=== PATIENT | male | born 1985 | race Caucasian/White ===

== ENCOUNTER 2021-11-22 01:27 | Observation (INO) | payer BC ==
--- NOTE | 2021-11-22 03:06 | ED ---
Chest Pain HPI - General Chief Complaint: Chest Pain Stated Complaint: Chest pain, high BP Time Seen by Provider: 11/22/21 02:39 Source: patient Mode of arrival: ambulatory Limitations: no limitations - Related Data Allergies Allergy/AdvReac Type Severity Reaction Status Date / Time No Known Allergies Allergy Verified 11/22/21 01:36 Review of Systems ROS Statement: Those systems with pertinent positive or pertinent negative responses have been documented in the HPI. ROS Other: All systems not noted in ROS Statement are negative. EKG Findings - EKG Comments: EKG Findings:: EKG A. fib with RVR 149 QRS 90 QTC 354 Past Medical History Past Medical History: Hypertension History of Any Multi-Drug Resistant Organisms: None Reported Past Surgical History: No Surgical Hx Reported Past Psychological History: No Psychological Hx Reported Smoking Status: Never smoker Past Alcohol Use History: Rare Past Drug Use History: None Reported General Exam Limitations: no limitations Course Vital Signs 11/22/21 11/22/21 01:34 03:00 Temperature 98.7 F Pulse Rate 77 147 H Respiratory 18 22 Rate Blood Pressure 152/100 128/106 O2 Sat by Pulse 98 98 Oximetry Disposition Clinical Impression: New onset atrial fibrillation, Atrial fibrillation with RVR Disposition: ADMITTED IP TO THIS HOSP Condition: Good Is patient prescribed a controlled substance at d/c from ED?: No Referrals: Roxy Charles MD [Primary Care Provider] - 1-2 days
[2021-11-22 03:25] LABS: Basophils % (A) 0 %; Eosinophils # (A) 0.2 k/uL (0-0.7); Eosinophils % (A) 2 %; HCT 41.9 % (39.0-53.0); HGB 14.4 gm/dL (13.0-17.5); Lymphocytes % (A) 21 %; MCH 30.4 pg (25.0-35.0); MCHC 34.3 g/dL (31.0-37.0); MCV 88.7 fL (80.0-100.0); Mean Platelet Volume 8.2; Monocytes # (A) 0.7 k/uL (0-1.0); Monocytes % (A) 8 %; Neutrophils # (A) 6.4 k/uL (1.3-7.7); Neutrophils % (A) 68 %; Platelet Count 293 k/uL (150-450); RBC 4.72 m/uL (4.30-5.90); RDW 12.9 % (11.5-15.5); WBC 9.5 k/uL (3.8-10.6)
[2021-11-22 03:35] LABS: Creatine Kinase 120 U/L (55-170)
[2021-11-22 03:37] LABS: ALT 15 U/L (4-49); AST 25 U/L (17-59); African American GFR (CKD) >90 (>60 ml/min/1.73 sqM); Albumin 4.7 g/dL (3.5-5.0); Alkaline Phosphatase 101 U/L (38-126); Anion Gap 7 mmol/L; Blood Urea Nitrogen 17 mg/dL (9-20); Calcium 9.5 mg/dL (8.4-10.2); Carbon Dioxide 27 mmol/L (22-30); Chloride 106 mmol/L (98-107); Glucose 98 mg/dL (74-99); Non-African American GFR(CKD) >90 (>60 ml/min/1.73 sqM); Sodium 140 mmol/L (137-145); Total Bilirubin 0.3 mg/dL (0.2-1.3); Total Protein 7.4 g/dL (6.3-8.2)
[2021-11-22] MEDS ORDERED: ONDANSETRON 4 MG/2 ML VIAL IVP PRN (03:44)
[2021-11-22] MEDS ORDERED: MORPHINE SULFATE 4 MG/ML SYRINGE IV PRN (03:44)
[2021-11-22] MEDS ORDERED: DILTIAZEM DRIP BOLUS FROM BAG 1 MG SOLN IV ONE (03:44)
[2021-11-22] MEDS ORDERED: NALOXONE 0.4 MG/ML 1 ML VIAL IV PRN (03:44)
[2021-11-22] MEDS ORDERED: METOPROLOL TARTRATE 5 MG/5 ML VIAL IVP STA (03:44)
[2021-11-22] MEDS ORDERED: DILTIAZEM 125 MG in SODIUM CHLORIDE 0.9% 100 ML IV SCH (03:45)
[2021-11-22 03:47] LABS: Creatine Kinase MB 0.8 ng/mL (0.0-2.4); Troponin I <0.012 ng/mL (0.000-0.034)
[2021-11-22] MEDS: SODIUM CHLORIDE 0.9% 1,000 ML IV SCH ×2 (03:54→21:37)
[2021-11-22] MEDS: APIXABAN 5 MG TAB PO SCH ×2 (05:18→19:45)
[2021-11-22] MEDS ORDERED: FLECAINIDE 50 MG TAB PO STA (08:59)
--- NOTE | 2021-11-22 09:23 | P.HPIM ---
History of Present Illness H&P Date: 11/22/21 Yair Castaneda, is a 35-year-old male who presented to [facility] emergency room with a chief complaint of chest pain, patient describes a discomfort in his chest that started around 11 PM last night He was evaluated in the emergency room vital examination on presentation revealed a temperature of 98.7 pulse 147 respiration 18 blood pressure 152/100 pulse ox 98% on room air Laboratory data revealed white blood count 9.5 hemoglobin 14.4 platelet count 293 sodium 140 potassium 4.0 chloride 106 CO2 27 BUN 17 creatinine 0.69 troponin level less than 0.012 patient was started on IV Cardizem drip Testing in the emergency room revealed EKG done in the emergency room revealed atrial fibrillation with rapid ventricular response heart rate of 149 Patient was admitted to medical floor for further evaluation and treatment, cardiology consultation was requested. Past medical history is significant for hypertension he takes a combination of amlodipine/valsartan 10/320 one tablet daily otherwise he denies any significant past medical history, he denies taking any other medications at home. His past medical history is also significant for COVID-19 infection twice, first time in 2019 at that time he was admitted for 4 days, and about 1 months ago when he had mild upper respiratory disease. 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 On review of systems patient is alert and oriented 3 in no apparent distress there is no fever or chills no headache or dizziness no chest pain no shortness of breath no cough no nausea or vomiting no abdominal pain no diarrhea no blood in the stools no burning with urination no frequency or urgency and no hematuria. There is no weakness or numbness in any of the extremities there is no change in vision speech or gait. Past Medical History Past Medical History: Hypertension History of Any Multi-Drug Resistant Organisms: None Reported Past Surgical History: No Surgical Hx Reported Additional Past Surgical History / Comment(s): wisdom teeth Past Anesthesia/Blood Transfusion Reactions: No Reported Reaction Past Psychological History: No Psychological Hx Reported Smoking Status: Never smoker Past Alcohol Use History: Rare Past Drug Use History: None Reported Medications and Allergies Allergies Allergy/AdvReac Type Severity Reaction Status Date / Time No Known Allergies Allergy Verified 11/22/21 01:36 Physical Exam Vitals: Vital Signs Temp Pulse Pulse Resp BP BP Pulse Ox 07/16/22 07:53 98.1 F 109 H 16 118/76 98 11/22/21 05:13 18 11/22/21 04:28 99.4 F 66 18 127/85 97 11/22/21 04:11 93 20 97 11/22/21 04:00 107 H 20 115/87 96 11/22/21 03:00 147 H 22 128/106 98 11/22/21 01:34 98.7 F 77 18 152/100 98 Intake and Output 11/21/21 11/22/21 11/22/21 22:59 06:59 14:59 Other: Voiding Method Toilet # Voids 1 Weight 108.862 kg In general patient is alert and oriented x 3 in no distress HEENT head normocephalic and atraumatic Neck is supple no JVD no goiter no lymphadenopathy no carotid bruit Chest examination is clear to auscultation no crackles no wheezing Cardiac exam reveals irregular heart sounds S1 and S2 no gallops no murmurs Abdomen is soft nontender no organomegaly with normal bowel sounds Extremity exam reveals no edema no cyanosis or clubbing Neurological examination reveals no gross focal deficits Results CBC & Chem 7: 11/22/21 03:03 11/22/21 03:03 Thrombosis Risk Factor Assmnt - Choose All That Apply Any of the Below Risk Factors Present?: No Assessment and Plan Plan: Episode of chest pain New onset atrial fibrillation with rapid ventricular response Underlying history of hypertension At this time patient is admitted to telemetry floor He is maintained on IV Cardizem drip Cardiology consultation was requested Will follow closely
--- NOTE | 2021-11-22 12:58 | P.CRDCN ---
History of Present Illness Consult date: 11/22/21 Consult reason: atrial fibrillation Chief complaint: New-onset A. fib History of present illness: This is Joe Andrew NP, I'm dictating on behalf of Dr. Levin's H&P and A&P The patient was interviewed and examined. HPI: The patient is a pleasant 35-year-old male who initially presented to the hospital with complaints of weakness and fatigue with sudden onset at home. Patient states that he had been working at home, when he suddenly felt weak and tired, he states that the feeling went away, but also states that he's been having similar feelings to this on and OFF FOR THE LAST MONTH OR 2. HE STATES LAST NIGHT HE CHECKED HIS BLOOD PRESSURE AND FOUND TO BE SIGNIFICANTLY ELEVATED, AND WHEN HE CHECKED HIS SMART WATCH IT SAID HE WAS IN A. FIB. PATIENT PRESENTED TO THE HOSPITAL AND ON EKG WAS FOUND TO BE IN ATRIAL FIBRILLATION WITH RAPID VENTRICULAR RESPONSE. HE WAS SUBSEQUENTLY ADMITTED ON A CARDIZEM DRIP FOR RATE CONTROL. He has a past medical history that is significant for hypertension. He is usually on amlodipine-valsartan 10-320 mg daily. He reports today that he feels much better. His been on IV Cardizem since admission, and currently remains in A. fib with RVR. ROS: [No fever, chills, or rigors] [no cough, phlegm, or expectoration] [no nausea, vomiting, or diarrhea] [no hematuria, dysuria] [no musculoskelatal complaints] [no strokes or seizures] [no skin lesions] EXAMINATION: GENERAL: Well-appearing, well-nourished and in no acute distress. NECK: Supple without JVD or thyromegaly. LUNGS: Breath sounds clear to auscultation bilaterally. Respiration equal and unlabored. No wheezes, rales or rhonchi. HEART: Irregular rate and rhythm without murmurs, rubs or gallops. S1 and S2 heard. EXTREMITIES: Normal range of motion, no edema. No clubbing or cyanosis. Peripheral pulses intact and strong. REVIEW OF LABS, ECG & MEDICAL DATA: LABS: White count 9.5, hemoglobin 14.4, platelet 293, sodium 140, potassium 4.0, B1 17, creatinine 0.69, serial troponins negative, TSH 1.54 EKG: Atrial fibrillation with rapid ventricular response VITALS: Temp 98.2, pulse 78, respirations 16, blood pressure 122/83, O2 saturation 100% on room air IMPRESSION: 1. Atrial fibrillation with rapid ventricular response 2. Hypertension PLAN: Discontinue IV Cardizem Give flecainide 100 mg once, evaluate if patient converts. If patient does not convert, continue oral flecainide at 100 mg twice a day. If patient does not convert will consider oral Cardizem Further recommendations based on patient's clinical course Thank you for the consult and allowing us to participate in the care of this patient. Past Medical History Past Medical History: Hypertension History of Any Multi-Drug Resistant Organisms: None Reported Past Surgical History: No Surgical Hx Reported Additional Past Surgical History / Comment(s): wisdom teeth Past Anesthesia/Blood Transfusion Reactions: No Reported Reaction Past Psychological History: No Psychological Hx Reported Smoking Status: Never smoker Past Alcohol Use History: Rare Past Drug Use History: None Reported Medications and Allergies Home Medications Medication Instructions Recorded Confirmed Type Amlodipine Besylate/Valsartan 1 tab PO DAILY 11/22/21 11/22/21 History [Amlodipine-Valsartan 10-320 mg] Multivitamins, Thera [Multivitamin 1 tab PO DAILY 11/22/21 11/22/21 History (formulary)] Allergies Allergy/AdvReac Type Severity Reaction Status Date / Time No Known Allergies Allergy Verified 11/22/21 11:16 Physical Exam Vitals: Vital Signs Temp Pulse Pulse Resp BP BP Pulse Ox 11/22/21 12:00 98.2 F 78 16 122/83 100 11/22/21 07:53 98.1 F 109 H 16 118/76 98 11/22/21 05:13 18 11/22/21 04:28 99.4 F 66 18 127/85 97 11/22/21 04:11 93 20 97 11/22/21 04:00 107 H 20 115/87 96 11/22/21 03:00 147 H 22 128/106 98 11/22/21 01:34 98.7 F 77 18 152/100 98 Intake and Output 11/21/21 11/22/21 11/22/21 22:59 06:59 14:59 Intake Total 120 Balance 120 Intake: Oral 120 Other: Voiding Method Toilet Toilet # Voids 1 Weight 108.862 kg Results 11/22/21 03:03 11/22/21 03:03 Cardiac Enzymes 11/22/21 11/22/21 11/22/21 Range/Units 03:03 03:03 07:20 AST 25 (17-59) U/L CK-MB (CK-2) 0.8 (0.0-2.4) ng/mL Troponin I <0.012 <0.012 (0.000-0.034) ng/mL 11/22/21 Range/Units 09:53 AST (17-59) U/L CK-MB (CK-2) (0.0-2.4) ng/mL Troponin I <0.012 (0.000-0.034) ng/mL CBC 11/22/21 Range/Units 03:03 WBC 9.5 (3.8-10.6) k/uL RBC 4.72 (4.30-5.90) m/uL Hgb 14.4 (13.0-17.5) gm/dL Hct 41.9 (39.0-53.0) % Plt Count 293 (150-450) k/uL Comprehensive Metabolic Panel 11/22/21 Range/Units 03:03 Sodium 140 (137-145) mmol/L Potassium 4.0 (3.5-5.1) mmol/L Chloride 106 (98-107) mmol/L Carbon Dioxide 27 (22-30) mmol/L BUN 17 (9-20) mg/dL Creatinine 0.69 (0.66-1.25) mg/dL Glucose 98 (74-99) mg/dL Calcium 9.5 (8.4-10.2) mg/dL AST 25 (17-59) U/L ALT 15 (4-49) U/L Alkaline Phosphatase 101 (38-126) U/L Total Protein 7.4 (6.3-8.2) g/dL Albumin 4.7 (3.5-5.0) g/dL Current Medications Generic Name Dose Route Start Last Admin Trade Name Freq PRN Reason Stop Dose Admin Apixaban 5 mg 11/22/21 09:00 11/22/21 05:18 Apixaban 5 Mg Tab PO 5 mg BID DEBBI Administration Protocol Sodium Chloride 1,000 mls @ 130 mls/hr 11/22/21 03:45 11/22/21 03:54 Saline 0.9% IV 130 mls/hr .Q7H42M DEBBI Administration Diltiazem HCl 125 mg/ Sodium 125 mls @ 5 mls/hr 11/22/21 03:45 11/22/21 04:03 Chloride IV 5 mg/hr .Q24H DEBBI 5 mls/hr Administration 5 MG/HR Morphine Sulfate 4 mg 11/22/21 03:44 Morphine Sulfate 4 Mg/Ml Syringe IV Q4HR PRN Severe Pain Naloxone HCl 0.2 mg 11/22/21 03:44 Naloxone 0.4 Mg/Ml 1 Ml Vial IV Q2M PRN Opioid Reversal Ondansetron HCl 4 mg 11/22/21 03:44 Ondansetron 4 Mg/2 Ml Vial IVP Q8HR PRN Nausea And Vomiting Intake and Output 11/21/21 11/22/21 11/22/21 22:59 06:59 14:59 Intake Total 120 Balance 120 Intake: Oral 120 Other: Voiding Method Toilet Toilet # Voids 1 Weight 108.862 kg 11/22/21 03:03 11/22/21 03:03
[2021-11-22] MEDS ORDERED: FLECAINIDE 50 MG TAB PO ONE (18:00)
[2021-11-23] MEDS: SODIUM CHLORIDE 0.9% 1,000 ML IV SCH (04:16)
[2021-11-23] MEDS: APIXABAN 5 MG TAB PO SCH (08:29)
[2021-11-23] MEDS ORDERED: FLECAINIDE 50 MG TAB PO SCH (09:00)
--- NOTE | 2021-11-23 11:20 | CA ---
Transthoracic Echo Report Name: Yair Castaneda Age: 35 Gender: M : 1985 Exam Date: 11/22/2021 09:55 Exam Location: [place] [facility] Ht (in): 72 Wt (lb): 250 Ordering Physician: Emmanuel Ybarra MD Attending/Referring Phys: Hog Driver Katharine Bradley RDCS Procedure CPT: Indications: Chest Pain Cardiac Hx: Technical Quality: Good Contrast 1: Total Dose (mL): Contrast 2: Total Dose (mL): MEASUREMENTS (Male / Female) Normal Values 2D ECHO LV Diastolic Diameter PLAX 5.4 cm 4.2 - 5.9 / 3.9 - 5.3 cm LV Systolic Diameter PLAX 4.1 cm IVS Diastolic Thickness 1.1 cm 0.6 - 1.0 / 0.6 - 0.9 cm LVPW Diastolic Thickness 1.1 cm 0.6 - 1.0 / 0.6 - 0.9 cm LV Relative Wall Thickness 0.4 RV Internal Dim ED PLAX 3.9 cm LA Systolic Diameter LX 3.4 cm 3.0 - 4.0 / 2.7 - 3.8 cm LA Volume 49.4 cm??? 18 - 58 / 22 - 52 cm??? M-MODE Aortic Root Diameter MM 3.3 cm LA Systolic Diameter MM 3.9 cm LA Ao Ratio MM 1.2 MV E Point Septal Separation 0.5 cm AV Cusp Separation MM 2.5 cm DOPPLER MV E' Velocity 3.8 cm/s FINDINGS Left Ventricle Low Normal left ventricular size, wall thickness, systolic function with no obvious regional wall motion abnormalities. Right Ventricle The right ventricle is normal in size and function. Right Atrium The right atrium is normal in size. Left Atrium The left atrium is normal in size. Mitral Valve Structurally normal mitral valve without significant stenosis or prolapse. There is mild mitral regurgitation. Aortic Valve Structurally normal aortic valve without significant sclerosis or stenosis. There is no aortic regurgitation. Tricuspid Valve Structurally normal tricuspid valve without significant stenosis. Pulmonary artery systolic pressure is normal. Pulmonic Valve Structurally normal pulmonic valve without significant stenosis. There is no pulmonic regurgitation. Pericardium Normal pericardium without effusion. Aorta Normal aortic root dimension. CONCLUSIONS Low normal left ventricle systolic function, patient in atrial fibrillation Right ventricle appears mildly enlarged Previewed by: Dr. Perry Levin MD (Electronically Signed) Final Date: 23 November 2021 11:20
--- NOTE | 2021-11-23 11:28 | P.PN ---
Subjective Progress Note Date: 11/23/21 This is Joe Andrew NP, I'm dictating on behalf of Dr. Levin's H&P and A&P. Patient was interviewed and examined. Patient is a pleasant 35-year-old male who initially presented to hospital with A. fib with rapid ventricular response. We started the patient on flecainide yesterday, and after a single dose he converted back to normal sinus rhythm. Patient received another dose yesterday evening, and again a dose this morning, and EKG this morning after 3 doses of flecainide showed normal ST segments, with a narrow QRS. Patient reports that he is doing well today, and states that he was able to tell when he converted back to normal sinus rhythm yesterday afternoon. He has been ambulating in the room, and currently denies chest pain, shortness of breath, dizziness, and weakness. GENERAL: Well-appearing, well-nourished and in no acute distress. NECK: Supple without JVD or thyromegaly. LUNGS: Breath sounds clear to auscultation bilaterally. Respiration equal and unlabored. No wheezes, rales or rhonchi. HEART: Regular rate and rhythm without murmurs, rubs or gallops. S1 and S2 heard. EXTREMITIES: Normal range of motion, no edema. No clubbing or cyanosis. Peripheral pulses intact and strong. VITALS: Temp 98.0, pulse 67, respirations 18, blood pressure 151/85, O2 saturation 97% on room air TELEMETRY: Normal sinus rhythm LABS: No new labs drawn today IMPRESSION: 1. Atrial fibrillation with rapid ventricular response 2. Hypertension PLAN: Continue flecainide as ordered Restart patient's amlodipine/valsartan 10-320 mg daily EKG after 3 doses of flecainide demonstrates normal ST segments with a narrow QRS Continue Eliquis at 5 mg 3 times a day Patient should follow-up in the office within one to 2 weeks From a cardiology standpoint the patient can be discharged Thank you for allowing us to participate in the care of this patient. If further recommendations are needed please do not hesitate to reconsult us. Objective - Vital Signs Vital signs: Vital Signs Temp 98.0 F 11/23/21 08:00 Pulse 67 11/23/21 08:00 Resp 18 11/23/21 08:00 BP 151/85 11/23/21 08:00 Pulse Ox 97 11/23/21 08:00 FiO2 Intake & Output 11/22/21 11/23/21 11/23/21 18:59 06:59 18:59 Intake Total 780 360 Output Total 400 Balance 380 360 Intake: Oral 780 360 Output: Urine 400 Other: Voiding Method Toilet Toilet Urinal # Voids 1 1 # Bowel Movements 0 - Labs CBC & Chem 7: 11/22/21 03:03 11/22/21 03:03
[2021-11-23 12:14] VITALS: BP 133/88; PULSE 65; RESP 16; TEMP 98.5
--- NOTE | 2021-11-23 12:17 | P.DS ---
Providers Date of admission: 11/22/21 03:44 Expected date of discharge: 11/23/21 Attending physician: Emmanuel Ybarra Consults: 11/22/21 03:44 Consult Physician Routine Consulting Provider: Christianne Flores Consult Reason/Comments: NEWafibRVR Do you want consulting provider notified?: Yes Primary care physician: Roxy [facility] Hospital Course: Diagnosis on discharge: Episode of chest pain New onset atrial fibrillation with rapid ventricular response Underlying history of hypertension Hospital course: Yair Castaneda, is a 35-year-old male who presented to [facility] emergency room with a chief complaint of chest pain, patient describes a discomfort in his chest that started around 11 PM last night He was evaluated in the emergency room vital examination on presentation revealed a temperature of 98.7 pulse 147 respiration 18 blood pressure 152/100 pulse ox 98% on room air Laboratory data revealed white blood count 9.5 hemoglobin 14.4 platelet count 293 sodium 140 potassium 4.0 chloride 106 CO2 27 BUN 17 creatinine 0.69 troponin level less than 0.012 patient was started on IV Cardizem drip Testing in the emergency room revealed EKG done in the emergency room revealed atrial fibrillation with rapid ventricular response heart rate of 149 Patient was admitted to medical floor for further evaluation and treatment, cardiology consultation was requested. Past medical history is significant for hypertension he takes a combination of amlodipine/valsartan 10/320 one tablet daily otherwise he denies any significant past medical history, he denies taking any other medications at home. His past medical history is also significant for COVID-19 infection twice, first time in 2019 at that time he was admitted for 4 days, and about 1 months ago when he had mild upper respiratory disease. 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 On review of systems patient is alert and oriented 3 in no apparent distress there is no fever or chills no headache or dizziness no chest pain no shortness of breath no cough no nausea or vomiting no abdominal pain no diarrhea no blood in the stools no burning with urination no frequency or urgency and no hematuria. There is no weakness or numbness in any of the extremities there is no change in vision speech or gait. On 11/23/2021 patient was seen and examined on the telemetry floor he was alert and oriented 3 in no apparent distress he is in normal sinus rhythm with a normal rate, he denies any chest pain palpitation dizziness or shortness of breath . He was evaluated by cardiology during this admission he was started on flecainide 100 mg by mouth twice daily and Eliquis 5 mg by mouth twice daily. He was cleared by cardiology for discharge, he was given prescriptions for Flecainide and Eliquis, he was discharged home. He will follow-up with Dr. Charles within one week he will also follow with cardiology in 1-2 weeks Patient Condition at Discharge: Good Plan - Discharge Summary Discharge Rx Participant: No New Discharge Prescriptions: New Apixaban [Eliquis] 5 mg PO BID tab Flecainide [Tambocor] 100 mg PO Q12HR tab Continue Multivitamins, Thera [Multivitamin (formulary)] 1 tab PO DAILY Amlodipine Besylate/Valsartan [Amlodipine-Valsartan 10-320 mg] 1 tab PO DAILY Discharge Medication List Amlodipine Besylate/Valsartan [Amlodipine-Valsartan 10-320 mg] 1 tab PO DAILY 11/22/21 [History] Multivitamins, Thera [Multivitamin (formulary)] 1 tab PO DAILY 11/22/21 [History] Apixaban [Eliquis] 5 mg PO BID tab 11/23/21 [Rx] Flecainide [Tambocor] 100 mg PO Q12HR tab 11/23/21 [Rx] Follow up Appointment(s)/Referral(s): Roxy Charles MD [Primary Care Provider] - 1-2 days Patient Instructions/Handouts: Flecainide (By mouth), Apixaban (By mouth), A- fib (Atrial Fibrillation) (DC)
--- NOTE | 2021-11-25 10:48 | CDI ---
Documentation Clarification Form Date: 11/25/21 From: Jovita Joya Admit Date: 11/22/2021 03:44:00 AM Patient Name: Yair Castaneda Visit Number: [id number] Discharge Date: 11/23/2021 12:48:00 PM ATTENTION: The Clinical Documentation Specialists (CDI) and [facility] Coding Staff appreciate your assistance in clarifying documentation. Please respond to the clarification below the line at the bottom and electronically sign. The CDI & [facility] Coding staff will review the response and follow-up if needed. Please note: Queries are made part of the Legal Health Record. If you have any questions, please contact the author of this message via ITS. Dr. Perry Levin, Atrial Fibrillation is documented in your consult, ED Note, H&P and DS. Additional clarification regarding the type of atrial fibrillation is requested. History/Risk Factors: HTN Clinical Indicators: Last night he checked his blood pressure and found to be significantly elevated and when he checked his smart watch it said he was in A fib. EKG/telemetry: A. fib with RVR 149 QRS 90 QTC 354 Treatment: IV Cardizem, Flecainide Please clarify the type of atrial fibrillation, if known: [ ] Chronic [ ] Permanent [ ] Paroxysmal [ ] Persistent [ ] Other, please specify [ ] Unable to determine Paroxysmal atrial fibrillation MTDD
--- NOTE | 2022-01-03 13:29 | ED ---
Chest Pain HPI - General Chief Complaint: Chest Pain Stated Complaint: Chest pain, high BP Time Seen by Provider: 11/22/21 02:39 Source: patient, RN notes reviewed, old records reviewed Mode of arrival: ambulatory Limitations: no limitations - History of Present Illness Initial Comments: This is a 36-year-old male to the emergency department for evaluation. Patient has history of hypertension. Patient states she was outside doing some work and felt very lightheaded and dizziness and "feel very weak. He fell fatigue tired and noticed that his heart was racing. He did admit to some mild chest pain at that time. Symptoms have progressed, some mild diaphoresis and sweating, and symptoms persist here in the emergency department. Patient has no prior history of feeling the same. No prior history of similar symptoms. No recent travel history or sick contacts MD Complaint: chest pain, other (Elevated heart rate lightheadedness dizziness) -: hour(s) Onset: during exertion Pain Location: substernal Pain Radiation: none Severity: moderate Severity scale (1-10): 4 Quality: dull Consistency: intermittent Improves With: nothing Worsens With: exertion Context: other (Recent physical activity) Anginal Symptoms: diaphoresis, dyspnea Other Symptoms: palpitations Treatments Prior to Arrival: none - Related Data Home Medications Medication Instructions Recorded Confirmed Amlodipine Besylate/Valsartan 1 tab PO DAILY 11/22/21 11/22/21 [Amlodipine-Valsartan 10-320 mg] Multivitamins, Thera [Multivitamin 1 tab PO DAILY 11/22/21 11/22/21 (formulary)] Previous Rx's Medication Instructions Recorded Apixaban [Eliquis] 5 mg PO BID tab 11/23/21 Flecainide [Tambocor] 100 mg PO Q12HR tab 11/23/21 Allergies Allergy/AdvReac Type Severity Reaction Status Date / Time No Known Allergies Allergy Verified 11/22/21 11:16 Review of Systems ROS Statement: Those systems with pertinent positive or pertinent negative responses have been documented in the HPI. ROS Other: All systems not noted in ROS Statement are negative. EKG Findings - EKG Comments: EKG Findings:: EKG shows atrial fibrillation 149 QRS 90 QTC 354 Past Medical History Past Medical History: Hypertension History of Any Multi-Drug Resistant Organisms: None Reported Past Surgical History: No Surgical Hx Reported Additional Past Surgical History / Comment(s): wisdom teeth Past Anesthesia/Blood Transfusion Reactions: No Reported Reaction Past Psychological History: No Psychological Hx Reported Smoking Status: Never smoker Past Alcohol Use History: Rare Past Drug Use History: None Reported General Exam Limitations: no limitations General appearance: alert, in no apparent distress, anxious Head exam: Present: atraumatic, normocephalic, normal inspection Eye exam: Present: normal appearance, PERRL, EOMI. Absent: scleral icterus, conjunctival injection, periorbital swelling ENT exam: Present: normal exam, mucous membranes moist Neck exam: Present: normal inspection. Absent: tenderness, meningismus, lymphadenopathy Respiratory exam: Present: normal lung sounds bilaterally. Absent: respiratory distress, wheezes, rales, rhonchi, stridor Cardiovascular Exam: Present: tachycardia, irregular rhythm, normal heart sounds. Absent: systolic murmur, diastolic murmur, rubs, gallop, clicks GI/Abdominal exam: Present: soft, normal bowel sounds. Absent: distended, tenderness, guarding, rebound, rigid Extremities exam: Present: normal inspection, full ROM, normal capillary refill. Absent: tenderness, pedal edema, joint swelling, calf tenderness Back exam: Present: normal inspection Neurological exam: Present: alert, oriented X3, CN II-XII intact Psychiatric exam: Present: normal affect, normal mood Skin exam: Present: warm, dry, intact, normal color. Absent: rash Course Vital Signs 11/22/21 11/22/21 11/22/21 01:34 03:00 04:00 Temperature 98.7 F Pulse Rate 77 147 H 107 H Respiratory 18 22 20 Rate Blood Pressure 152/100 128/106 115/87 O2 Sat by Pulse 98 98 96 Oximetry 11/22/21 04:11 Temperature Pulse Rate 93 Respiratory 20 Rate Blood Pressure O2 Sat by Pulse 97 Oximetry - Reevaluation(s) Reevaluation #1: Medical record is reviewed Patient informed results and questions answered Patient symptoms improved here in the emergency department Chest Pain MDM - MDM 36 male to the emergency department for evaluation initially presented for evaluation of chest pain patient is found to be in new-onset atrial fibrillation also in atrial fibrillation with RVR. Patient no other rate control will be admitted for cardiology to evaluate Management Disposition Clinical Impression: New onset atrial fibrillation, Atrial fibrillation with RVR Disposition: ADMITTED IP TO THIS HOSP Condition: Good Is patient prescribed a controlled substance at d/c from ED?: No Time of Disposition: 03:44
== END 2021-11-23 12:48 | disposition home or self-care (01) ==
LOC: EC 01:27 → 3SCARD 03:44 → INTOOBSV 03:44 → 3SCARD 04:19 → UNDODISIN 11-23 12:48
PROVIDERS: ADMIT Internal Medicine; ATTEND Internal Medicine
DX: I48.91 Unspecified atrial fibrillation (principal); R07.89 Other chest pain; I10 Essential (primary) hypertension; Z79.899 Other long term (current) drug therapy; Z86.16 Personal history of COVID-19; Z98.818 Other dental procedure status
CPT/HCPCS: 96374; 96375; 99285; 36415; 93005; 93306; 80053; 84443; 82550; 82553; 84484; 85025; G0378 ×2

== ENCOUNTER → 2022-05-22 | Outpatient (CLI) | payer BC ==
[2022-05-22 15:35] LABS: HCT 43.9 % (39.6-50.0); HGB 14.6 g/dL (13.0-17.0); MCH 30.2 pg (27.0-32.0); MCHC 33.3 g/dL (32.0-37.0); MCV 90.7 fL (80.0-97.0); NRBC Per 100 WBC 0 /100 WBCS (0.0-0.0); Platelet Count 323 X 10*3/uL (140-440); RBC 4.84 X 10*6/uL (4.40-5.60); WBC 4.97 X 10*3/uL (4.50-10.00)
[2022-05-22 16:15] LABS: African American GFR (CKD) 131.3 (60.0-200.0); Blood Urea Nitrogen 15.3 mg/dL (9.0-27.0); Non-African American GFR(CKD) 113.3 (60.0-200.0); Potassium 5.3 mmol/L (3.5-5.5)
== END | disposition home or self-care (01) ==
LOC: LABPAT 09:44
PROVIDERS: ATTEND Internal Medicine Clinical Cardiac Electrophysiology
DX: Z01.812 Encounter for preprocedural laboratory examination (principal); I48.91 Unspecified atrial fibrillation
CPT/HCPCS: 80051; 82565; 84520; 85027

== ENCOUNTER 2022-05-26 10:28 | Day surgery (SDC) | payer BC ==
[2022-05-25 09:59] VITALS: BMI 32.5
[~2022-05-26 10:28] MED LIST: DEXAMETHASONE SOD PHOSPHATE 4 MG/ML 1 ML VIAL IV ONE; HYDROmorphone 0.5 MG/0.5 ML SYRINGE IVP PRN; LIDOCAINE 1% (10MG/ML) FOR IV START INTRADERMA PRN; MIDAZOLAM 2 MG/2 ML VIAL IV PRN; ONDANSETRON 4 MG/2 ML VIAL IVP ONE; SODIUM CHLORIDE 0.9% 1,000 ML IV SCH
[2022-05-26] MEDS ORDERED: SODIUM CHLORIDE 0.9% 1,000 ML IV ONE (10:41)
[2022-05-26] MEDS ORDERED: PROPOFOL 10 MG/ML 20 ML VIAL IV ONE (13:06)
[2022-05-26] MEDS ORDERED: ISOPROTERENOL 250 MCG/1.25 ML SYR IV ONE (13:06)
[2022-05-26] MEDS ORDERED: HYDROmorphone (PF) 1 MG/ML ONE (13:06)
[2022-05-26] MEDS ORDERED: fentaNYL (PF) 50 MCG/ML 2 ML AMP ONE (13:06)
[2022-05-26] MEDS ORDERED: SUCCINYLCHOLINE CHLORIDE 200 MG/10 ML VIAL IV ONE (13:06)
[2022-05-26] MEDS ORDERED: MIDAZOLAM 2 MG/2 ML VIAL ONE (13:06)
[2022-05-26] MEDS ORDERED: ROCURONIUM 10 MG/ML (5 ML VIAL) IV ONE (13:06)
[2022-05-26] MEDS ORDERED: LIDOCAINE 2% INJ 20 MG/ML (2 ML VIAL) ONE (13:06)
[2022-05-26] MEDS ORDERED: PHENYLEPHRINE-0.9% NACL SYG 1,000 MCG/10 ML SYRINGE ONE (13:06)
[2022-05-26] MEDS ORDERED: HEPARIN SODIUM,PORCINE 10,000 UNIT/ML 1 ML VIAL ONE (13:06)
[2022-05-26] MEDS ORDERED: HEPARIN SOD,PORK IN 0.45% NACL 25,000 UNIT in 0.45% NACL 1 250ML.BAG IV ONE (13:30)
[2022-05-26] MEDS ORDERED: LIDOCAINE 1% INJ 10MG/ML (30 ML VIAL-PF) SQ ONE (13:42)
[2022-05-26] MEDS ORDERED: LACTATED RINGERS 1,000 ML IV ONE (14:31)
[2022-05-26] MEDS ORDERED: IOPAMIDOL-370 100ML BTL INJ ONE (14:32)
[2022-05-26] MEDS ORDERED: ACETAMINOPHEN TAB 325 MG TAB PO PRN (15:25)
[2022-05-26] MEDS ORDERED: ACETAMINOPHEN IV (For NPO) 1,000 MG in EMPTY BAG 1 BAG IVPB ONE (15:25)
--- NOTE | 2022-05-26 15:28 | P.PRLE ---
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 LV function was normal He we will continue flecainide for about 2-3 months He will also continue ELIQUIS 5 mg twice daily Thank you for entrusting me with the care of the patient Warm regards Sincerely Perry Levin
--- NOTE | 2022-05-26 15:33 | P.EPPROC ---
- EP Procedure Note Electrophysiology Procedure Note: PROCEDURE A. 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 No effusion Successful A. fib ablation/pulmonary vein isolation of all veins using cryo- ablation On high-dose Isuprel/rapid atrial pacing, no inducible atrial fibrillation Complete entrance block in all 4 veins confirmed No evidence for phrenic nerve injury Esophageal deflection YES , left-sided esophagus PROCEDURE DETAILS Patient was brought to the EP lab in a fasting state after obtaining written informed consent. Procedure performed under general anesthesia Esophagus was intubated. Esophageal temperature monitoring with circa catheter. Esophageal deflection performed with an endoscope to avoid hypothermia of the esophagus. Esophagus was deflected away from the balloon at least half centimeters to avoid thermal injury After initial muscle relaxant use, muscle relaxants were not given thereafter in order to assess phrenic nerve during procedure. Patient prepped and draped as per protocol Cryo ablation-set up with standard preparation of the cryoablation tools done. Femoral Venous access obtained on the right and left groins and sheaths placed Diagnostic catheters for the high right atrium, phrenic nerve stimulation and pacing, His bundle, coronary sinus placed Intracardiac echo catheter placed. Long sheath placed in the right atrium Left and right transseptal catheterization performed under intracardiac echo guidance. Intravenous heparin with aCT above 300 Later, catheter positioning and balloon positioning in the left atrium and pulmonary veins, under intracardiac echo guidance Diagnostic EP study with coronary sinus pacing and recording Baseline measurements: Sinus cycle length 843 ms, AZ interval 127 ms, QRS 75 ms and QT 373 ms AH 50 ms and HV 33 ms Sinus node recovery times at 605 100 ms were 765 and 750 ms AV node Wenckebach block 280 ms Atrial ERP 500\to 70\to 60 ms On high-dose Isuprel atrial pacing was performed after 250 ms Burst stimulation was performed No inducible atrial fibrillation Transseptal catheterization performed RA pressure 12/10/5 LA pressure Transseptal catheterization performed with standard sheath. The cryoablation sheath was then placed with an over the wire exchange without any acute complications. The cryoablation balloon was placed in the office of each pulmonary vein and all 4 pulmonary veins were isolated. IV dye was injected to confirm occlusion. Goal: achieve complete occlusion of the pulmonary vein, achieve -30 degrees C at 30 seconds and achieve -40 degrees C at 60 seconds and a time to effect of less than 60 seconds. If not, the balloon was repositioned to obtain this result After completion of Cryoblation with durations from 180-240 seconds, entrance block was confirmed with the Attain circular catheter in a roving fashion around the antrum of the pulmonary veins Phrenic nerve pacing was performed from the SVC, right innominate vein area and diaphragm voltage was monitored. Diaphragmatic contractions were also monitored manually for strength of contraction. Phrenic nerve stimulation was performed from within the RS PV, using the achieve catheter. Both distance as well as thresholds were measured within the RS PV This site was tagged fluoroscopically and the Balloon was positioned at least 0.5-1 cm away from this site to minimize phrenic nerve injury risk At the end of the procedure the Achieve catheter was once again used to check for entrance block Phrenic nerve stimulation was performed to confirm diaphragmatic stimulation the end of the procedure Cine fluoroscopy was performed at the very end of the procedure to confirm movement of both diaphragms with inspiration and expiration At the end of the procedure the patient was extubated Venous sheaths were removed and hemostasis assured with a closure device PROCEDURES PERFORMED Diagnostic EP study CS pacing and recording Left and right transseptal catheterization Catheter the mapping of the tachycardia Intracardiac echocardiography Pulmonary vein isolation with transseptal and comprehensive EPS, [id number] Drug infusion, +[id number]
[2022-05-26] MEDS ORDERED: ACETAMINOPHEN IV (For NPO) 1,000 MG/100 ML VIAL IVPB ONE (15:44)
[2022-05-26] MEDS: LACTATED RINGERS 1,000 ML IV SCH (16:54)
[2022-05-26] MEDS: FLECAINIDE 50 MG TAB PO SCH (22:10)
[2022-05-26] MEDS: APIXABAN 5 MG TAB PO SCH (22:11)
[2022-05-27] MEDS: LACTATED RINGERS 1,000 ML IV SCH (05:26)
[2022-05-27] MEDS: FLECAINIDE 50 MG TAB PO SCH (09:00)
[2022-05-27] MEDS: APIXABAN 5 MG TAB PO SCH (09:00)
[2022-05-27] MEDS ORDERED: amLODIPine 10 MG TAB PO SCH (09:00)
[2022-05-27] MEDS ORDERED: VALSARTAN 160 MG TAB PO SCH (09:00)
[2022-05-27 09:02] VITALS: BP 127/87; PULSE 97; RESP 18; TEMP 98
== END 2022-05-27 13:37 | disposition home or self-care (01) ==
LOC: CATHEP 10:28 → 6NMEDSUR 15:17 → CATHEP 05-27 13:37
PROVIDERS: ATTEND Internal Medicine Clinical Cardiac Electrophysiology
DX: I48.0 Paroxysmal atrial fibrillation (principal); I10 Essential (primary) hypertension; Z79.899 Other long term (current) drug therapy
CPT/HCPCS: 93623; 93656; C1894 ×2; C1769 ×4; C1760; C1730 ×2; C1759; C1893; C1733; C1766; J2250; J0330; J1644 ×2; J2001 ×2; J3010; J1170; J0131; J2370; J2704; Q9967

== ENCOUNTER → 2024-07-26 | Outpatient (CLI) | payer BC ==
[2024-07-26 15:49] VITALS: BP 135/92; PULSE 80; RESP 16; TEMP 98.6
--- NOTE | 2024-07-26 16:27 | P.SLEEP ---
History of Present Illness DATE: 07/26/2024 CONSULTATION/NEW PATIENT EVALUATION HISTORY OF PRESENT ILLNESS/SLEEP-WAKE EVALUATION: 38-year-old gentleman had b een evaluated in the sleep center for possible obstructive sleep apnea hypopnea syndrome. SLEEP SCHEDULE: Usually sleep schedule 11 PM to 4:30 AM on weekdays and until 6 AM on weekend. FALLING ASLEEP: No problems with falling asleep, although patient has TV set in bedroom. DURING SLEEP: Patient usually sleeps on the side position with snoring and awakenings from sleep one time sleep with nocturia. No history of hypnogogical hallucinations, sleep paralysis, or cataplexy. DURING THE DAY/WAKE STATE: In the morning patient wake up tired. Eighty Eight sleepiness scale is increased to 10. PAST MEDICAL HISTORY: Atrial fibrillation, hypertension. PAST SURGICAL HISTORY: Cardiac ablation, left ankle surgery, vasectomy. MEDICATIONS: Have been reviewed, please see below. SOCIAL HISTORY: Please see below. FAMILY HISTORY: Please see below. REVIEW OF SYSTEMS: Snoring, feeling sleepiness during the day. No fevers. No double vision. No recent chest pain. No shortness of breath. No abdominal pain. No bleeding episodes. No blood in urine. No seizure episodes. PHYSICAL EXAMINATION: GENERAL: A pleasant patient without any distress. VITAL SIGNS: Please see below, weight 272 pounds, BMI 37.9. HEENT: PERRLA, EOMI. Evaluation of oropharynx showed tongue protrudes midline, low position of soft palate Mallampati 23. NECK: Supple. No JVD. Thyroid is not palpable. 16.5 inches in circumference. LUNGS: Clear to percussion and to auscultation. Good air exchange. No wheezing or rhonchi. HEART: S1, S2 regular. No murmurs, gallops or rubs. ABDOMEN: Soft and nontender. Bowel sounds are present. No organomegaly appreciated. EXTREMITIES: No clubbing or cyanosis. ALUMNI COORDINATOR: Awake, alert, and oriented x3. Cranial nerves 2 to 7 intact. There is no fasciculation or atrophy noted. No focal deficits observed. ASSESSMENT: 1. Snoring, occasional awakenings from sleep, moderately low soft palate, borderline size of the neck 16.5 inches in circumference, sleepiness with Eighty Eight Sleepiness Scale increased to 10. Obstructive sleep apnea hypopnea syndrome. 2. Obesity, BMI 37.9. 3. History of atrial fibrillation, status post cardiac ablation. 4. Hypertension. 5 status post left ankle surgery. 6 . Status post vasectomy. PLAN: 1. Polysomnography for evaluation of patient's breathing during sleep. 2. Following plan after reading sleep study. 3. Preferable position during sleep on the side. 4. No driving if patient feels any sleepiness. Patient is aware of civil and criminal liability for unsafe driving. 5. Sleep hygiene with regular sleep time for at least 7.5-8 hours. 6. Watching and losing weight. Thank you very much for referring this patient for consultation. Sincerely, Mikie Rangel MD, PhD, FAASM. Diplomat of [place] [employer], Sleep Medicine Board by [place] [employer] [place] [employer] Associate Project Manager of [facility] [place] cc: Roxy Charles MD, Perry Levin MD Past Medical History Past Medical History: Atrial Fibrillation, Hypertension Additional Past Medical History / Comment(s): See Dr. Levin's H&P. Was hospitalized in October with A-Fib. History of Any Multi-Drug Resistant Organisms: None Reported Past Surgical History: EPS, Orthopedic Surgery Additional Past Surgical History / Comment(s): wisdom teeth, left Ancle Surgery Past Anesthesia/Blood Transfusion Reactions: No Reported Reaction Past Psychological History: No Psychological Hx Reported Smoking Status: Never smoker Past Alcohol Use History: Rare Past Drug Use History: None Reported - Past Family History Mother Family Medical History: Hypertension, Sleep Apnea/CPAP/BIPAP Additional Family Medical History / Comment(s): Headaches, sinus headaches, Insomnia, Anemia Medications and Allergies Home Medications Medication Instructions Recorded Confirmed Type Amlodipine Besylate/Valsartan 1 tab PO DAILY 11/22/21 07/26/24 History [Amlodipine Besylate/Valsartan 10-320 mg] Multivitamins, Thera [Multivitamin 1 tab PO DAILY 11/22/21 05/26/22 History (formulary)] Apixaban [Eliquis] 5 mg PO BID tab 11/23/21 05/26/22 Rx Cholecalciferol [Vitamin D3 (10 10 mcg PO DAILY 05/25/22 05/26/22 History Mcg = 400 Iu)] Flecainide [Tambocor] 50 mg PO Q12HR 05/25/22 07/26/24 History Potassium Gluconate [Potassium 99 mg PO DAILY 05/25/22 05/26/22 History Gluconate ER] Zinc Gluconate [Zinc] 50 mg PO DAILY 05/25/22 05/26/22 History Colchicine 0.6 mg PO DAILY #7 capsule 05/27/22 Rx Ibuprofen 800 mg PO Q8H 07/26/24 07/26/24 History Metoprolol Tartrate [Lopressor] 12.5 mg PO DAILY 07/26/24 07/26/24 History Allergies Allergy/AdvReac Type Severity Reaction Status Date / Time No Known Allergies Allergy Verified 05/25/22 10:17 Physical Exam Vitals: Vital Signs Temp Pulse Resp BP Pulse Ox 07/26/24 15:48 98.6 F 80 16 135/92 99 Intake and Output 07/26/24 07/26/24 07/26/24 06:59 14:59 22:59 Other: Weight 123.377 kg Sleep Note - Sleep Data ESS Total: 10 - Sleep Note Sleep Note: Temperature: 98.6 F Pulse Rate: 80 Respiratory Rate: 16 Blood Pressure: 135/92 SpO2: 99 Height: 5 ft 11 in Weight: 123.377 kg BMI: Neck Circumference: 16.5
== END ==
LOC: 3 N SLEEP 15:13
PROVIDERS: ATTEND Internal Medicine
DX: G47.33 Obstructive sleep apnea (adult) (pediatric) (principal); E66.9 Obesity, unspecified; I10 Essential (primary) hypertension; Z68.37 Body mass index [BMI] 37.0-37.9, adult; Z86.79 Personal history of other diseases of the circulatory system; Z98.890 Other specified postprocedural states; Z98.52 Vasectomy status
CPT/HCPCS: 99211

== ENCOUNTER → 2024-09-25 | Outpatient (CLI) | payer BC ==
--- NOTE | 2024-09-28 15:35 | P.PCN ---
Description of Procedure: CLINICAL: A home sleep apnea test has been done for confirmation of possible obstructive sleep apnea-hypopnea syndrome. DESCRIPTION OF PROCEDURE: RESULTS: Recording time was 7 hours 17 minutes. Evaluation time was 6 hours 49 minutes. Evaluation time is sufficient for making conclusion about results of the test. Raw data of sleep recording has been reviewed and is adequate. Respiratory channel showed 1 apneas and 24 hypopneas. Apnea-hypopnea index was 3.7 per hour, in supine position 5.8. Pulse rate in the range between minimum 54, maximum 90, average 65 by computer calculation. Lowest desaturation was 84%. IMPRESSION: 1. Mild abnormalities of respiration in supine position apnea-hypopnea index 5.8, no abnormalities of respiration in nonsupine position apnea-hypopnea index 0.7. Total apnea hypopnea index 3.7, which is in normal range by todays criteria. Please see other impressions from consultation. PLAN: 1. I will see patient for follow-up visit to explain results of the test and recommendations. We may consider to repeat testing. 2. Patient should sleep on the side position only. We will discuss how to use tennis ball technique. 3. Watching and losing weight. 4. Sleep hygiene with regular time in bed for at least 8 hours. 5. No driving if feeling any sleepiness. Thank you very much for allowing me to participate in the management of your patient. Sincerely, Mikie Rangel MD, PhD, FAASM Diplomat of [place] [employer] Sleep Medicine Board of [place] [employer] Store Keeper of [facility] [place] cc: Roxy Charles MD, Perry Levin MD
== END ==
LOC: 3 N SLEEP 16:57
PROVIDERS: ATTEND Internal Medicine
DX: G47.33 Obstructive sleep apnea (adult) (pediatric) (principal)

== ENCOUNTER → 2024-10-27 | Outpatient (CLI) | payer BC ==
[2024-10-27 15:46] LABS: Basophils # (A) 0.01 X 10*3/uL (0.00-0.10); Basophils % (A) 0.1 %; Eosinophils # (A) 0.11 X 10*3/uL (0.04-0.35); Eosinophils % (A) 1.3 %; HCT 40.9 % (39.6-50.0); HGB 13.3 g/dL (13.0-17.0); Lymphocytes # (A) 1.77 X 10*3/uL (0.90-5.00); Lymphocytes % (A) 21.1 %; MCH 29.2 pg (27.0-32.0); MCHC 32.5 g/dL (32.0-37.0); MCV 89.7 FL (80.0-97.0); Mean Platelet Volume 11.4 FL (9.5-12.2); Monocytes # (A) 0.55 X 10*3/uL (0.20-1.00); Monocytes % (A) 6.6 %; NRBC Per 100 WBC 0 X 10*3/uL (0.00-0.01); Neutrophils # (A) 5.93 X 10*3/uL (1.80-7.70); Neutrophils % (A) 70.7 %; Platelet Count 318 X 10*3/uL (140-440); RBC 4.56 X 10*6/uL (4.40-5.60); RDW 12.4 % (11.5-14.5); WBC 8.39 X 10*3/uL (4.50-10.00)
[2024-10-27 16:03] LABS: Blood Urea Nitrogen 19.9 mg/dL (9.0-27.0); Carbon Dioxide 27.1 mmol/L (21.6-31.8); Chloride 100 mmol/L (96-109); Potassium 4.2 mmol/L (3.5-5.5); Sodium 140 mmol/L (135-145)
== END | disposition home or self-care (01) ==
LOC: LABWHC1 09:18
PROVIDERS: ATTEND Internal Medicine Clinical Cardiac Electrophysiology
DX: Z01.812 Encounter for preprocedural laboratory examination (principal); I48.0 Paroxysmal atrial fibrillation
CPT/HCPCS: 36415; 80051; 82565; 84520; 85025

== ENCOUNTER 2024-11-14 08:03 | Day surgery (SDC) | payer BC ==
[~2024-11-14 08:03] MED LIST changes: -DEXAMETHASONE SOD PHOSPHATE 4 MG/ML 1 ML VIAL IV ONE; -LIDOCAINE 1% (10MG/ML) FOR IV START INTRADERMA PRN; -MIDAZOLAM 2 MG/2 ML VIAL IV PRN; -ONDANSETRON 4 MG/2 ML VIAL IVP ONE; -SODIUM CHLORIDE 0.9% 1,000 ML IV SCH
[2024-11-14] MEDS: SODIUM CHLORIDE 0.9% 1,000 ML IV SCH (08:54)
[2024-11-14 09:01] LABS: ALT 19 U/L (4-49); AST 24 U/L (17-59); African American GFR (CKD) >90 (>60 ml/min/1.73 sqM); Albumin 4.7 g/dL (3.5-5.0); Alkaline Phosphatase 81 U/L (38-126); Anion Gap 9 mmol/L; Blood Urea Nitrogen 20 mg/dL (9-20); Calcium 9.2 mg/dL (8.4-10.2); Carbon Dioxide 32 mmol/L (22-30); Chloride 101 mmol/L (98-107); Glucose 108 mg/dL (74-99); Non-African American GFR(CKD) >90 (>60 ml/min/1.73 sqM); Potassium 4.2 mmol/L (3.5-5.1); Sodium 142 mmol/L (137-145); Total Protein 7.3 g/dL (6.3-8.2)
[2024-11-14] MEDS: MIDAZOLAM 2 MG/2 ML VIAL IV PRN (09:06)
[2024-11-14] MEDS ORDERED: ROCURONIUM 10 MG/ML (5 ML VIAL) IV ONE (10:55)
[2024-11-14] MEDS ORDERED: HEPARIN SODIUM,PORCINE 10,000 UNIT/ML 1 ML VIAL ONE (10:55)
[2024-11-14] MEDS ORDERED: fentaNYL (PF) 50 MCG/ML 2 ML AMP ONE (10:55)
[2024-11-14] MEDS ORDERED: LIDOCAINE 1% INJ 10MG/ML (20 ML MDV) ONE (10:55)
[2024-11-14] MEDS ORDERED: GLYCOPYRROLATE 0.2 MG/ML 2 ML VIAL ONE (10:55)
[2024-11-14] MEDS ORDERED: METOPROLOL TARTRATE 5 MG/5 ML VIAL IVP ONE (10:55)
[2024-11-14] MEDS ORDERED: ISOPROTERENOL 250 MCG/1.25 ML SYR IV ONE (10:55)
[2024-11-14] MEDS ORDERED: ONDANSETRON 4 MG/2 ML VIAL ONE (10:55)
[2024-11-14] MEDS ORDERED: MIDAZOLAM 2 MG/2 ML VIAL ONE (10:55)
[2024-11-14] MEDS ORDERED: SUCCINYLCHOLINE CHLORIDE 200 MG/10 ML VIAL IV ONE (10:55)
[2024-11-14] MEDS ORDERED: PROPOFOL 10 MG/ML 20 ML VIAL IV ONE (10:55)
[2024-11-14] MEDS ORDERED: NEOSTIGMINE 1 MG/ML 10 ML VIAL ONE (10:55)
[2024-11-14] MEDS ORDERED: LIDOCAINE 4% LTA KIT (4 ML) TOPICAL ONE (10:55)
[2024-11-14] MEDS: IV FLUID CONTINUATION 1,000 ML IV ONE (11:01)
[2024-11-14] MEDS: HEPARIN SODIUM,PORCINE 10,000 UNIT in SODIUM CHLORIDE 0.9% 1,000 ML IRRIGATION ONE (11:02)
[2024-11-14] MEDS: HEPARIN SODIUM,PORCINE (1 ML) 2,500 UNIT in SODIUM CHLORIDE 0.9% 250 ML IRRIGATION ONE (11:02)
[2024-11-14] MEDS: HEPARIN SOD,PORK IN 0.45% NACL 25,000 UNIT in 0.45% NACL 1 250ML.BAG IV ONE (11:02)
--- NOTE | 2024-11-14 11:12 | P.HPCAR ---
History of Present Illness This is Dr. Levin dictating an H/P on this patient The patient was interviewed and examined IMPRESSION / ASSESSMENT: History of atrial fibrillation with recurrences despite PVI in May 2022 Flecainide has failed to maintain sinus rhythm to suppress atrial fibrillation Episodes of atrial flutter Hypertension PLAN: Proceed with A-fib ablation with linear ablation in the left atrium and in the right atrium Continue anticoagulation Continue antihypertensive therapy HPI Patient continues to have episodes of atrial fibrillation despite flecainide. He has undergone a PVI/A-fib ablation in May 2022 Denies any fever chills cough syncope chest pain ROS: No fever chills or rigors, no cough, phlegm or expectoration, no nausea, vomiting or diarrhea, no hematuria, dysuria, no musculoskeletal complaints, no strokes or seizures, no skin lesions. EXAMINATION: 146/94 and 142/91 mmHg pulse rate in the 70s Afebrile Heart sounds are normal and regular Breath sounds are clear REVIEW OF LABS, ECG & MEDICAL DATA Sodium 142, potassium 4.2 BUN 20 and creatinine 0.7 LFTs are normal TSH is normal at 0.97 Physical Exam Vitals: Vital Signs Temp Pulse Resp BP BP Pulse Ox 11/14/24 08:47 98.9 F 76 16 146/94 142/91 98 Intake and Output 11/13/24 11/14/24 11/14/24 22:59 06:59 14:59 Output Total 600 Balance -600 Output: Urine 600 Other: Weight 112.4 kg Past Medical History Past Medical History: Atrial Fibrillation, Hypertension Additional Past Medical History / Comment(s): See Dr. Levin's H&P. Was hospitalized in October with A-Fib. History of Any Multi-Drug Resistant Organisms: None Reported Past Surgical History: EPS, Orthopedic Surgery Additional Past Surgical History / Comment(s): wisdom teeth, left Ankle Surgery Past Anesthesia/Blood Transfusion Reactions: No Reported Reaction Smoking Status: Never smoker - Past Family History Mother Family Medical History: Hypertension, Sleep Apnea/CPAP/BIPAP Additional Family Medical History / Comment(s): Headaches, sinus headaches, Insomnia, Anemia Physical Examination Vital Signs Temp Pulse Resp BP BP Pulse Ox 11/14/24 08:47 98.9 F 76 16 146/94 142/91 98 Intake and Output 07/07/25 07/08/25 07/08/25 22:59 06:59 14:59 Output Total 600 Balance -600 Output: Urine 600 Other: Weight 112.4 kg Results 11/14/24 08:30 Cardiac Enzymes 11/14/24 Range/Units 08:30 AST 24 (17-59) U/L Comprehensive Metabolic Panel 11/14/24 Range/Units 08:30 Sodium 142 (137-145) mmol/L Potassium 4.2 (3.5-5.1) mmol/L Chloride 101 (98-107) mmol/L Carbon Dioxide 32 H (22-30) mmol/L BUN 20 (9-20) mg/dL Creatinine 0.71 (0.66-1.25) mg/dL Glucose 108 H (74-99) mg/dL Calcium 9.2 (8.4-10.2) mg/dL AST 24 (17-59) U/L ALT 19 (4-49) U/L Alkaline Phosphatase 81 (38-126) U/L Total Protein 7.3 (6.3-8.2) g/dL Albumin 4.7 (3.5-5.0) g/dL Current Medications Generic Name Dose Route Start Last Admin Trade Name Freq PRN Reason Stop Dose Admin Hydromorphone HCl 0.5 mg 11/14/24 07:00 Hydromorphone 0.5 Mg/0.5 Ml Syringe IVP 11/14/24 23:00 Q5M PRN Phase 1 or 2 - Pain Control Sodium Chloride 1,000 mls @ 20 mls/hr 11/14/24 05:44 11/14/24 08:54 Saline 0.9% IV 12/14/24 05:43 20 mls/hr .Q24H DEBBI Administration Lactated Ringer's 1,000 mls @ 20 mls/hr 11/14/24 05:44 Lactated Ringers IV 12/14/24 05:43 .Q24H DEBBI Intake and Output 11/13/24 11/14/24 11/14/24 22:59 06:59 14:59 Output Total 600 Balance -600 Output: Urine 600 Other: Weight 112.4 kg Patient Weight 11/15/24 06:59 Weight 112.4 kg 11/14/24 08:30
[2024-11-14] MEDS: LIDOCAINE 1% INJ 10MG/ML (20 ML MDV) SQ ONE (11:34)
[2024-11-14] MEDS: HEPARIN SODIUM (1,000 UNIT/ML) 1,000 UNIT in SODIUM CHLORIDE 0.9% 1,000 ML IRRIGATION ONE (12:15)
[2024-11-14] MEDS: IOPAMIDOL-370 100ML BTL INJ ONE (13:49)
[2024-11-14] MEDS ORDERED: ACETAMINOPHEN TAB 325 MG TAB PO PRN (14:54)
[2024-11-14] MEDS: ACETAMINOPHEN IV (For NPO) 1,000 MG in EMPTY BAG 1 BAG IVPB ONE (15:56)
[2024-11-14] MEDS: HYDROcodone/APAP 5-325MG 1 EACH TAB PO STA (17:49)
[2024-11-14 20:18] VITALS: RESP 17
[2024-11-14] MEDS: APIXABAN 5 MG TAB PO SCH (20:44)
[2024-11-14] MEDS ORDERED: MAGNESIUM GLYCINATE PO SCH (21:00)
[2024-11-14] MEDS: LACTATED RINGERS 1,000 ML IV SCH (21:45)
[2024-11-15 08:15] VITALS: BP 121/81; PULSE 85; TEMP 98.1
[2024-11-15] MEDS: amLODIPine 10 MG TAB PO SCH (10:41)
[2024-11-15] MEDS: METOPROLOL SUCCINATE (ER) 25 MG TAB.ER.24H PO SCH (10:41)
[2024-11-15] MEDS: TRIAMTERENE-HCTZ 37.5-25MG 1 EACH CAP PO SCH (10:42)
[2024-11-15] MEDS: VALSARTAN 160 MG TAB PO SCH (10:42)
--- NOTE | 2024-11-15 10:55 | P.DS ---
Providers Expected date of discharge: 11/15/24 Attending physician: Perry Levin Primary care physician: [facility] Course: The patient was interviewed and examined IMPRESSION / ASSESSMENT: History of atrial fibrillation with recurrences despite PVI in May 2022, status post atrial fibrillation ablation, please see procedural documentation for details Flecainide has failed to maintain sinus rhythm to suppress atrial fibrillation Episodes of atrial flutter Hypertension PLAN: Proceed with A-fib ablation with linear ablation in the left atrium and in the right atrium Continue anticoagulation New prescription for triamterene hydrochlorothiazide provided, discontinue hydrochlorothiazide Patient will be discharged home today in stable condition. HPI Patient continues to have episodes of atrial fibrillation despite flecainide. Familia subramanian has undergone a PVI/A-fib ablation in May 2022 Denies any fever chills cough syncope chest pain 11/15/2024 Patient seen and examined 1 day post procedure. He denies chest pain no palpitations, he remains in sinus rhythm. Patient was started on triamterene hydrochlorothiazide with improvement of his blood pressure readings. Blood pressure 121/81, heart rate 85, pulse ox 96% on room air. EXAMINATION: Vital signs reviewed Afebrile Heart sounds are normal and regular Breath sounds are clear REVIEW OF LABS, ECG & MEDICAL DATA Sodium 142, potassium 4.2 BUN 20 and creatinine 0.7 LFTs are normal TSH is normal at 0.97 Nurse practitioner note has been reviewed, I agree with documented findings and plan of care. Patient was seen and examined. Plan - Discharge Summary Discharge Rx Participant: Yes New Discharge Prescriptions: New Triamterene/Hydrochlorothiazid [Triamterene-Hctz 37.5-25 mg Tb] 1 each PO DA TEMO #90 tablet Discontinued hydroCHLOROthiazide [Hydrodiuril] 25 mg PO DAILY No Action Apixaban [Eliquis] 5 mg PO BID tab Flecainide [Tambocor] 100 - 200 mg PO DIRECTED PRN PRN Reason: only if in a-fib Metoprolol Succinate (ER) [Toprol Xl] 12.5 mg PO DAILY Vitamin B Complex 1 each PO DAILY Amlodipine Besylate/Valsartan [Amlodipine Besylate/Valsartan 10-320 mg] 1 tab PO DAILY Magnesium Glycinate 2 tab PO HS Elderberry Gummy 2 tab PO DAILY Discharge Medication List Amlodipine Besylate/Valsartan [Amlodipine Besylate/Valsartan 10-320 mg] 1 tab PO DAILY 11/22/21 [History] Apixaban [Eliquis] 5 mg PO BID tab 11/23/21 [Rx] Flecainide [Tambocor] 100 - 200 mg PO DIRECTED PRN 05/25/22 [History] Elderberry Gummy 2 tab PO DAILY 11/09/24 [History] Magnesium Glycinate 2 tab PO HS 11/09/24 [History] Metoprolol Succinate (ER) [Toprol Xl] 12.5 mg PO DAILY 11/09/24 [History] Vitamin B Complex 1 each PO DAILY 11/09/24 [History] Triamterene/Hydrochlorothiazid [Triamterene-Hctz 37.5-25 mg Tb] 1 each PO DAILY #90 tablet 11/14/24 [Rx] Follow up Appointment(s)/Referral(s): Perry Levin MD [STAFF PHYSICIAN] - 1 Week Patient Instructions/Handouts: A-fib (Atrial Fibrillation) (DC) Activity/Diet/Wound Care/Special Instructions: Post EP study - Ablation instructions 1. Keep access sites dry for 2 days. 2. No heavy lifting or straining for 2 days. 3. Avoid bending the hips repeatedly for 2 days. 4. You may go up and down stairs slowly 5. If you have had an ablation for atrial fibrillation or atrial flutter and are on a blood thinner, do not stop the blood thinner even temporarily for 3 months post ablation Call if the following is noted 1. Bleeding, increasing swelling or pain at the access sites. 2. Increasing chest discomfort, especially upon taking a deep breath. 3. Increasing shortness of breath, at rest or with exertion. 4. Undue cough / phlegm 5. Difficulty or pain while swallowing. 6. Pain or change in color in the extremities. 7. Fever, chills, rigors. 8. Increasing headache or neurologic symptoms. 9. Dizziness, fainting, palpitations For patients who have undergone an A-fib ablation /atrial flutter ablation Strict instruction; do NOT stop anticoagulation (Eliquis/Xarelto/Pradaxa) for the next 2 months temporarily, for any elective, nonurgent surgery. This increases the risk of stroke, post A-fib ablation Stop hydrochlorothiazide Start triamterene hydrochlorothiazide combination Discharge Disposition: HOME SELF-CARE
--- NOTE | 2024-11-23 15:08 | P.EPPROC ---
- EP Procedure Note Electrophysiology Procedure Note: PROCEDURE Atrial ablation in the left atrial roof Interrogation of all pulmonary veins from prior ablation Atrial flutter ablation DIAGNOSIS Atrial fibrillation, symptomatic, refractory to therapy RESULT No left atrial appendage mass seen on intracardiac echo Ablation of the left atrial roof from left superior to right superior pulmonary veins, successful Confirmed with voltage mapping Complete exit block of all pulmonary veins from prior ablation Cavotricuspid isthmus ablation for atrial flutter ablation Esophageal deflection YES PROCEDURE DETAILS Written informed consent prior to procedure. Patient brought to the EP lab. General anesthesia given. Heparin administered. A city maintained above 300 seconds Both groins prepped and draped per protocol and venous sheaths placed. Esophagus intubated, circa catheter for temperature monitoring an endoscope for possible esophageal deflection. Phrenic nerve monitoring performed. Esophageal temperature monitoring performed. Esophageal deflection performed if circa catheter overlapping with the balloon or circa temperature less than 27.5°C Intracardiac echocardiography performed. Pericardium evaluated. Left atrial appendage evaluated. Left atrium evaluated along with pulmonary veins Transseptal catheterization performed under fluoroscopic guidance and intracardiac echo guidance Cryoablation sheath exchanged, balloon catheter along with achieve catheter placed in the left atrium. Pulmonary veins interrogated and was found to be completely isolated with entrance and exit block. Reconfirmed with voltage mapping Ablation of the left atrial roof performed with sequential lesions from the left superior to the right superior pulmonary veins. Ablation of the electrograms confirmed Penta ray placed in the left atrium. Voltage mapping performed. Complete isolation of all pulmonary veins and complete ablation of the left atrial roof and the upper posterior wall of the LA Catheter was withdrawn into the right atrium Successful ablation of the cavotricuspid isthmus for typical atrial flutter Confirmation of bidirectional block with differential pacing as well as with voltage mapping and activation mapping during CS pacing Diagnostic catheters for the high right atrium, His bundle, coronary sinus pl aced. LA and RA pressures recorded LA pressure: 20/09/09 Diagnostic EP study with coronary sinus pacing and recording Baseline measurements: AV node Wenckebach block 480 ms Post stimulation from the high right atrium from 400 ms down to 300 ms Venous sheaths were removed and hemostasis assured with a closure device. Patient extubated and transferred to recovery
== END 2024-11-15 12:16 | disposition home or self-care (01) ==
LOC: CATHEP 08:03 → 6NMEDSUR 14:02 → CATHEP 11-15 12:16
PROVIDERS: ATTEND Internal Medicine Clinical Cardiac Electrophysiology
DX: I48.91 Unspecified atrial fibrillation (principal); I10 Essential (primary) hypertension; Z79.01 Long term (current) use of anticoagulants; Z79.899 Other long term (current) drug therapy; Z82.49 Family history of ischemic heart disease and other diseases of the circulatory system
CPT/HCPCS: 93623; 93656; 93657; 86900; 86901; 80053; 84443; 86850; C1759; C1894; C1769; C1760 ×3; C1730 ×2; C1731; C1733; C1766; C1732; J2250; J0330; J1644 ×4; J2710; J2405; J2003; J3010; J0131; J2704; Q9967; J1596; J0616